=== PATIENT | male | born 1965 | race Caucasian/White ===

== ENCOUNTER 2023-04-29 14:54 | Emergency (ER) | payer OTHER ==
[~2023-04-29] VITALS: Ht 185.4 cm; Wt 127.3 kg
[2023-04-29 15:16] VITALS: BP 160/81
[2023-04-29 15:31] VITALS: BP 156/101
[2023-04-29 15:46] VITALS: BP 135/67
[2023-04-29 16:09] LABS: URINE BILIRUBIN - DIPSTICK Negative (NEGATIVE); URINE BLOOD DIPSTICK Large (NEGATIVE); URINE GLUCOSE - DIPSTICK Negative (NEGATIVE); URINE KETONE 15 mg/dL (NEGATIVE); URINE LEUK ESTERASE Negative (NEGATIVE); URINE NITRITE - DIPSTICK Negative (Negative); URINE PH 6.5 (4.5-8.0); URINE PROTEIN - DIPSTICK Negative (NEG-TRACE); URINE SPECIFIC GRAVITY >=1.030; URINE UROBILINOGEN - DIPSTICK 0.2 E.U./dL (0.2)
[2023-04-29 16:20] LABS: BASO% 0.6 % (0-3); HEMATOCRIT 40.3 % (39.0-50.0); IMMATURE GRANULOCYTES 0.3 % (0.0-5.0); LYMPH% 6.4 % (15-41); MEAN CELL VOLUME 88.4 fL CALC (80.0-100.0); MEAN CORPUSCULAR HGB 30.7 pG CALC (26.0-32.0); MEAN CORPUSCULAR HGB CONC 34.7 g/dL CAL (32.0-36.0); MONO% 4.8 % (2-13); NEUT# 6.22 thou/uL (1.82-7.42); NEUT% 87.9 % (42-76); RED BLOOD COUNT 4.56 mill/uL (4.70-6.10); RED CELL DISTRI WIDTH 12.2 % (11.5-15.5)
[2023-04-29 16:25] LABS: URINE COLOR Yellow
[2023-04-29 16:30] LABS: URINE RBC 25-50 RBC/hpf (0-5); URINE WBC 0-2 WBC/hpf (0-5)
[2023-04-29 16:35] LABS: ALBUMIN 3.9 g/dL (3.2-5.0); ALKALINE PHOSPHATASE 98 u/l (38-126); ANION GAP 13 (6-22 (CALC)); BILIRUBIN, TOTAL 0.9 mg/dL (0.2-1.3); BUN 10 mg/dL (9-20); BUN/CREATININE RATIO 13 (12-20 (CALC)); CHLORIDE 109 mmol/l (95-108); CREATININE 0.8 mg/dL (0.7-1.3); GFR FOR AFR.AMER. > 60 ML/MIN (>=60 (CALC)); GFR OTHER RACES > 60 ML/MIN (>=60 (CALC)); LIPASE 109 u/l (23-300); POTASSIUM 3.6 mmol/l (3.5-5.1); SGOT/AST 28 u/l (17-59); SODIUM 139 mmol/l (137-146); TOTAL PROTEIN 6.4 g/dL (6.3-8.2)
[2023-04-29 16:39] LABS: CARBON DIOXIDE 21 mmol/l (22-30)
[2023-04-29 18:59] VITALS: BP 135/67
== END 2023-04-29 19:13 | disposition home or self-care (01) | DRG 726 ==
LOC: ED 14:54
PROVIDERS: Emergency Medicine
PROC: 0T9B70Z Drainage of Bladder with Drainage Device, Via Natural or Artificial Opening (ICD-10-PCS; principal; 2023-04-29)
DX: N40.1 Benign prostatic hyperplasia with lower urinary tract symptoms (principal); R33.8 Other retention of urine; I10 Essential (primary) hypertension; E78.5 Hyperlipidemia, unspecified

== ENCOUNTER 2024-01-10 21:33 | Emergency (ER) | payer OTHER ==
[~2024-01-10] VITALS: Ht 185.4 cm; Wt 113.0 kg
[2024-01-10] VITALS (10 sets, daily range): BP systolic 104–129; BP diastolic 65–76
[2024-01-10 22:42] LABS: EOS% 1.9 % (0-8); HEMATOCRIT 41.5 % (39.0-50.0); HEMOGLOBIN 14.1 g/dl (14.0-18.0); IMMATURE GRANULOCYTES 0.2 % (0.0-5.0); LYMPH% 18.6 % (15-41); MEAN CELL VOLUME 88.7 fL CALC (80.0-100.0); MEAN CORPUSCULAR HGB 30.1 pG CALC (26.0-32.0); MONO% 10.9 % (2-13); NEUT# 4.16 thou/uL (1.82-7.42); NEUT% 67.4 % (42-76); RED BLOOD COUNT 4.68 mill/uL (4.70-6.10); RED CELL DISTRI WIDTH 12.3 % (11.5-15.5)
[2024-01-10 23:01] LABS: ALBUMIN 4.1 g/dL (3.2-5.0); ALKALINE PHOSPHATASE 98 u/l (38-126); ANION GAP 7 (6-22 (CALC)); BILIRUBIN, TOTAL 0.7 mg/dL (0.2-1.3); BUN 13 mg/dL (9-20); BUN/CREATININE RATIO 14 (12-20 (CALC)); CARBON DIOXIDE 26 mmol/l (22-30); CHLORIDE 107 mmol/l (95-108); ESTIMATED GFR 88 ML/MIN (>=90 (CALC)); SGOT/AST 22 u/l (17-59); SODIUM 136 mmol/l (137-146); TOTAL PROTEIN 6.9 g/dL (6.3-8.2)
[2024-01-10 23:05] LABS: D-DIMER 0.17 mg/L (0.19-0.60); PROTHROMBIN TIME 9.9 SECONDS (9.0-12.5)
[2024-01-11] VITALS (7 sets, daily range): BP systolic 100–115; BP diastolic 63–70
== END 2024-01-11 02:00 | disposition home or self-care (01) | DRG 882 ==
LOC: ED 21:33
PROVIDERS: Emergency Medicine
DX: F45.8 Other somatoform disorders (principal)

== ENCOUNTER 2024-04-01 20:51 | Emergency (ER) | payer OTHER ==
[~2024-04-01] VITALS: Ht 185.4 cm; Wt 109.0 kg
[2024-04-01 21:37] VITALS: BP 124/66
[2024-04-01 21:58] LABS: BASO% 0.6 % (0-3); EOS% 2.4 % (0-8); HEMATOCRIT 41.1 % (39.0-50.0); HEMOGLOBIN 13.4 g/dl (14.0-18.0); IMMATURE GRANULOCYTES 0.2 % (0.0-5.0); LYMPH% 22.8 % (15-41); MEAN CORPUSCULAR HGB 30.7 pG CALC (26.0-32.0); MEAN CORPUSCULAR HGB CONC 32.6 g/dL CAL (32.0-36.0); MONO% 10.8 % (2-13); NEUT# 4.15 thou/uL (1.82-7.42); NEUT% 63.2 % (42-76); RED BLOOD COUNT 4.37 mill/uL (4.70-6.10); RED CELL DISTRI WIDTH 12.5 % (11.5-15.5)
[2024-04-01 21:59] LABS: MEAN CELL VOLUME 94.1 fL CALC (80.0-100.0)
[2024-04-01 22:00] VITALS: BP 129/70
[2024-04-01 22:07] LABS: ALBUMIN 4.1 g/dL (3.2-5.0); ALKALINE PHOSPHATASE 83 u/l (38-126); ANION GAP 13 (6-22 (CALC)); BILIRUBIN, TOTAL 0.6 mg/dL (0.2-1.3); BUN 14 mg/dL (9-20); BUN/CREATININE RATIO 14 (12-20 (CALC)); CARBON DIOXIDE 26 mmol/l (22-30); CHLORIDE 105 mmol/l (95-108); ESTIMATED GFR 88 ML/MIN (>=90 (CALC)); POTASSIUM 3.8 mmol/l (3.5-5.1); SGOT/AST 32 u/l (17-59); SODIUM 140 mmol/l (137-146); TOTAL PROTEIN 6.6 g/dL (6.3-8.2)
[2024-04-01 22:14] LABS: ACT PARTIAL THROMBO TIME 25.9 SECONDS (20.0-32.5)
[2024-04-01 22:15] LABS: PROTHROMBIN TIME 10.4 SECONDS (9.0-12.5)
[2024-04-01 22:31] VITALS: BP 108/64
[2024-04-01 23:00] VITALS: BP 111/70
[2024-04-01 23:31] VITALS: BP 127/61
[2024-04-02 00:30] VITALS: BP 97/68
[2024-04-02 01:01] VITALS: BP 118/70
[2024-04-02 01:16] VITALS: BP 118/70
[2024-04-02] MEDS ORDERED: TAMSULOSIN0.4 MG PO (01:17)
[2024-04-02] MEDS ORDERED: MAXZIDE-25MG1 COMBO PO (01:18)
[2024-04-02] MEDS ORDERED: ASPIRIN ADULT L81 M2 PO (01:19)
[2024-04-02] MEDS ORDERED: LOPRESSOR25 M1 PO (01:20)
[2024-04-02] MEDS ORDERED: ATORVASTATIN CA20 MG PO (01:21)
[2024-04-02] MEDS ORDERED: LISINOPRIL20 M1 PO (01:21)
[2024-04-02] MEDS ORDERED: OMEPRAZOLE DR40 MG PO (01:22)
== END 2024-04-02 01:22 | disposition home or self-care (01) | DRG 313 ==
LOC: ED 20:51
PROVIDERS: Family Medicine
DX: R07.9 Chest pain, unspecified (principal); I49.5 Sick sinus syndrome; Z95.0 Presence of cardiac pacemaker